=== PATIENT | female | born 1960 | race Hispanic/Latino ===

== ENCOUNTER 2018-03-04 10:38 | Outpatient (CLI) | payer OTHER | END 2018-03-04 10:39 | disposition home or self-care (01) | LOC: BICMAMMO 10:38 | PROVIDERS: ATTEND Family Medicine | DX: Z12.31 Encounter for screening mammogram for malignant neoplasm of breast (principal) | CPT/HCPCS: 77063; 77067 ==

== ENCOUNTER 2018-05-19 08:53 | Day surgery (SDC) | payer OTHER ==
[2018-05-18 16:20] VITALS: BMI 41.5
[2018-05-19 10:46] LABS: #Basophils 0.1 thou/uL (0.0-0.2); #Eosinphils 0.1 thou/uL (0.0-0.7); #Lymphocytes 2.2 thou/uL (1.20-3.40); #Monocytes 0.5 thou/uL (0.11-0.59); #Neutrophils 3.8 thou/uL (1.40-6.50); %Lymphocytes 33.1 % (21.0-51.0); %Monocytes 7.3 % (0.0-10.0); %Neutrophils 57.7 % (42.0-75.0); Hemoglobin 13.4 g/dL (12.0-16.0); Mean Corpuscular HGB CONC 34.2 g/dL (32.0-36.0); Mean Corpuscular Hemoglobin 30.4 pg (27.0-31.0); Mean Corpuscular Volume 88.9 fL (78.0-98.0); Mean Platelet Volume 7.3 fL (7.4-10.4); Platelet Count 283 thou/uL (130-400); RBC Distribution Width 11.5 % (11.5-14.5); White Blood Cell (WBC) Count 6.5 thou/uL (4.8-10.8)
[2018-05-19 11:00] LABS: Anion Gap 14 mmol/L (10-20); BUN (Urea Nitrogen) 13 mg/dL (9.8-20.1); Calc. Creatinine Clearance 152 mL/min (70-130); Calcium 9.5 mg/dL (7.8-10.44); Carbon Dioxide 22 mmol/L (22-29); Chloride 107 mmol/L (98-107); Estimated GFR-MDRD Greater than 90; Glucose 92 mg/dL (70-105); Potassium 3.9 mmol/L (3.5-5.1); Sodium 139 mmol/L (136-145)
[2018-05-19] MEDS ORDERED: Fentanyl 100 MCG/2 ML VIAL ONE ×2 (11:26→12:05)
[2018-05-19] MEDS ORDERED: Bupivacaine PF 0.5% 30 ML VIAL ONE (12:06)
--- NOTE | 2018-05-19 13:18 | RAD ---
RIGHT FOOT 3 VIEWS: Date: 05/19/18 HISTORY: Status post bunionectomy. FINDINGS: Postoperative changes are noted of the right great toe, consistent with history of prior bunionectomy , with an internal fixation screw stabilizing the distal first metatarsal. Minimal focal soft tissue swelling. IMPRESSION: Recent status post bunionectomy changes. POS: OFF
[2018-05-19] MEDS ORDERED: HYDROcodone/Acetaminophen 5/325 mg Tablet ONE (13:52)
--- NOTE | 2018-05-19 14:14 | OP ---
DATE OF PROCEDURE: 05/19/2018 PREOPERATIVE DIAGNOSIS: Bunion, right foot. POSTOPERATIVE DIAGNOSIS: Bunion, right foot. PROCEDURES PERFORMED: Gilberto bunionectomy, right foot with screw fixation. ANESTHESIA: General with local foot block. HEMOSTASIS: Pneumatic ankle tourniquet at 250 mmHg. ESTIMATED BLOOD LOSS: Less than 5 mL. MATERIALS: 2-0 Vicryl, 4-0 Monocryl, and 4-0 Prolene. INJECTABLE: 20 mL of 0.5% Marcaine plain. DESCRIPTION OF PROCEDURE: The patient was brought into the operating room, placed on the operating table in supine position. A well-padded pneumatic ankle tourniquet was placed about the patient's right ankle. Following administration of IV anesthesia, local foot block was given utilizing 20 mL of 0.5% Marcaine plain. The foot was then scrubbed, prepped, and draped in the usual aseptic manner. Esmarch bandage was used to exsanguinate the patient's right foot and the pneumatic ankle tourniquet was then inflated to 250 mmHg, which provided adequate hemostasis throughout the entire procedure. Next, attention was then directed to the dorsal aspect of the patient's first metatarsophalangeal joint, where a 5 cm linear longitudinal incision was made over the dorsal aspect of the patient's first metatarsophalangeal joint. The incision was deepened into the subcuticular structures with care being taken to redirect all vital neurovascular structures. All bleeders were cauterized as necessary. Next, a T-type capsulotomy was performed at the head of the first metatarsal, exposing the head of the first metatarsal and base of the proximal phalanx. Next, the medial prominence was then carefully resected and passed from the operative field. A Chevron type osteotomy was performed, the head of the first metatarsal shifting into more corrected lateral position, the adductor tendon was carefully released from its attachment to base of the proximal phalanx. Fluoroscopy was used to assure proper alignment and correction, and all were noted to be correct at this time. Utilizing temporary fixation, a K-wire was driven across the osteotomy site. Next, a Synthes headless compression screw was placed across the osteotomy site from dorsal proximal to plantar distal. Next, the remaining medial bone shelf was then carefully resected and passed from the operative field. The wound was irrigated with copious amounts of sterile normal saline and mixture. The capsular structures were reapproximated and coapted utilizing 2-0 Vicryl and the skin was closed utilizing 4-0 Monocryl in a running subcuticular sutures pattern. skin was closed utilizing 4-0 Prolene in interlocking suture pattern. A light compressive dressing was placed about the patient's right foot and the pneumatic ankle tourniquet was released with prompt hyperemic response noted to all digits of the right foot. DISCHARGE SUMMARY: The patient tolerated the procedure and anesthesia and was transferred to the recovery room with vital signs stable and vascular status intact to all digits of the right foot. Following a period of postoperative monitoring, the patient is to be discharged home. Should she have any problems prior to the first postoperative appointment, she is advised to call and will be seen within 1 week of the procedure. Job ID: [id number]
[2018-05-19] MEDS ORDERED: Metoclopramide HCl 10 MG/2 ML VIAL ONE (16:17)
[2018-05-19] MEDS ORDERED: Ondansetron PF 4 MG/2 ML Vial ONE (16:17)
[2018-05-19] MEDS ORDERED: Lidocaine 1% PF 5 ML VIAL ONE (16:17)
[2018-05-19] MEDS ORDERED: PHENYLEPHRINE-NS 100 MCG/ML 10 ML SYRINGE ONE (16:17)
[2018-05-19] MEDS ORDERED: PROPOFOL 200 MG/20 ML VIAL ONE (16:17)
[2018-05-19] MEDS ORDERED: ePHEDrine 50 MG/ML VIAL ONE (16:17)
== END 2018-05-19 14:58 | disposition home or self-care (01) ==
LOC: SDC 08:53
PROVIDERS: ATTEND Podiatrist Foot & Ankle Surgery
PROC: 0QSN04Z Reposition Right Metatarsal with Internal Fixation Device, Open Approach (ICD-10-PCS; principal; 2018-05-19)
DX: M21.611 Bunion of right foot (principal); E03.9 Hypothyroidism, unspecified; E78.5 Hyperlipidemia, unspecified; E11.65 Type 2 diabetes mellitus with hyperglycemia; E66.01 Morbid (severe) obesity due to excess calories; Z68.41 Body mass index [BMI] 40.0-44.9, adult; Z87.891 Personal history of nicotine dependence; Z79.4 Long term (current) use of insulin; Z79.899 Other long term (current) drug therapy
CPT/HCPCS: 36415; 76000; 80048; 85025; C1713; J0690; J2001; J2405; J2704; J2765; J3010; J3490; S0020